=== PATIENT | female | born 1950 | race Caucasian/White ===

== ENCOUNTER 2017-01-05 10:30 | Outpatient (RCR) | payer MEDICARE, OTHER ==
[~2017-01-05 10:30] MED LIST: ASP81CT; HYDR-1231 PO; LOSA1TAB19 PO; OLME40TA14; calcium; potassium; vitamin d
== END 2017-01-07 | disposition home or self-care (01) ==
PROVIDERS: ATTEND Orthopaedic Surgery
DX: Z47.1 Aftercare following joint replacement surgery (principal); Z96.642 Presence of left artificial hip joint

== ENCOUNTER 2017-02-09 10:24 | Outpatient (RCR) | payer MEDICARE, OTHER | END 2017-02-26 16:39 | disposition home or self-care (01) | PROVIDERS: ATTEND Orthopaedic Surgery | DX: Z47.1 Aftercare following joint replacement surgery (principal); Z96.642 Presence of left artificial hip joint ==

== ENCOUNTER → 2017-05-20 | Outpatient (CLI) | payer MEDICARE, OTHER ==
[~2017-05-20] VITALS: Ht 165.1 cm; Wt 93.0 kg
[~2017-05-20] MED LIST changes: +LIDOCAINE 1% INJ 20 ML (XYLOCAINE) VIAL INJ ONE; +LIDOCAINE 1% INJ 20 ML (XYLOCAINE) VIAL ONE; +cefTRIAXone 1 GM (ROCEPHIN) VIAL IM ONE; +cefTRIAXone 1 GM (ROCEPHIN) VIAL ONE
[2017-05-20 14:24] VITALS: BP 160/97
[2017-05-20 14:41] VITALS: BP 160/97
== END ==
LOC: SDC 14:04
PROVIDERS: ATTEND Orthopaedic Surgery
DX: N39.0 Urinary tract infection, site not specified (principal)
CPT/HCPCS: 96372

== ENCOUNTER → 2017-08-02 | Outpatient (CLI) | payer MEDICARE, OTHER ==
[~2017-08-02] MED LIST changes: -LIDOCAINE 1% INJ 20 ML (XYLOCAINE) VIAL INJ ONE; -LIDOCAINE 1% INJ 20 ML (XYLOCAINE) VIAL ONE; -cefTRIAXone 1 GM (ROCEPHIN) VIAL IM ONE; -cefTRIAXone 1 GM (ROCEPHIN) VIAL ONE
== END ==
LOC: HH 07:00
PROVIDERS: ATTEND Orthopaedic Surgery
DX: N39.0 Urinary tract infection, site not specified (principal); M16.11 Unilateral primary osteoarthritis, right hip
CPT/HCPCS: 85652; 86141

== ENCOUNTER 2017-12-10 11:35 | Outpatient (RCR) | payer MEDICARE, OTHER | END 2017-12-14 | disposition home or self-care (01) | PROVIDERS: ATTEND Orthopaedic Surgery | DX: Z47.1 Aftercare following joint replacement surgery (principal); Z96.641 Presence of right artificial hip joint ==

== ENCOUNTER → 2018-11-30 | Outpatient (CLI) | payer MEDICARE, OTHER | LOC: CARD 12:43 | PROVIDERS: ATTEND Anesthesiology | DX: I35.1 Nonrheumatic aortic (valve) insufficiency (principal) | CPT/HCPCS: 93306 ==

== ENCOUNTER 2019-05-11 13:26 | Outpatient (RCR) | payer MEDICARE, OTHER | END 2019-05-15 | disposition home or self-care (01) | PROVIDERS: ATTEND Orthopaedic Surgery | DX: Z47.1 Aftercare following joint replacement surgery (principal); R53.1 Weakness; Z96.643 Presence of artificial hip joint, bilateral; Z85.41 Personal history of malignant neoplasm of cervix uteri ==

== ENCOUNTER 2019-08-15 13:51 | Outpatient (RCR) | payer MEDICARE, OTHER | END 2019-08-30 | disposition home or self-care (01) | PROVIDERS: ATTEND Orthopaedic Surgery | DX: Z47.1 Aftercare following joint replacement surgery (principal); Z96.643 Presence of artificial hip joint, bilateral; Z85.41 Personal history of malignant neoplasm of cervix uteri ==

== ENCOUNTER → 2021-09-03 | Outpatient (CLI) | payer MEDICARE, OTHER ==
--- NOTE | 2021-09-04 15:21 | Diagnostic Imaging Report ---
INDICATION: Routine screening. COMPARISON: 01/24/2018 and 12/29/2016. TECHNIQUE: 2D and 3D bilateral screening mammography was performed with CAD. FINDINGS: Both breasts are heterogeneously dense, limiting the sensitivity of mammography. No dominant mass or malignant-appearing microcalcifications are seen. There are occasional benign calcifications. The axillae are unremarkable. IMPRESSION: No mammographic features suspicious for malignancy are identified. ACR BI-RADS Category 2: Benign findings. Result letter will be mailed to the patient. Note: At least 10% of breast cancer is not imaged by mammography. Dictated by: Dictated on workstation # [id number]
== END ==
LOC: RAD 10:45
PROVIDERS: ATTEND Internal Medicine
DX: Z12.31 Encounter for screening mammogram for malignant neoplasm of breast (principal)
CPT/HCPCS: 77063; 77067

== ENCOUNTER → 2022-10-20 | Outpatient (CLI) | payer MEDICARE, OTHER ==
--- NOTE | 2022-10-20 12:35 | Diagnostic Imaging Report ---
INDICATION: Routine screening. COMPARISON: Prior mammograms from 09/03/2021 and 01/24/2018. TECHNIQUE: 2D and 3D bilateral screening mammography was performed with CAD. FINDINGS: Both breasts are heterogeneously dense, limiting the sensitivity of mammography. The parenchymal pattern is stable. No mass or malignant-appearing microcalcifications are seen. The axillae are unremarkable. IMPRESSION: No mammographic features suspicious for malignancy are identified. ACR BI-RADS Category 1: Negative. Result letter will be mailed to the patient. Note: At least 10% of breast cancer is not imaged by mammography. Dictated by: Dictated on workstation # [id number]
== END ==
LOC: RAD 10:49
PROVIDERS: ATTEND Internal Medicine
DX: Z12.31 Encounter for screening mammogram for malignant neoplasm of breast (principal)
CPT/HCPCS: 77063; 77067